=== PATIENT | male | born 1985 | race Caucasian/White ===

== ENCOUNTER → 2023-11-02 10:51 | Outpatient (REF) | payer OTHER, SELFPAY | LOC: HWRAD 10:51 | PROVIDERS: ATTENDING PHYSICIAN Internal Medicine | DX: N50.811 Right testicular pain (principal) | CPT/HCPCS: 76870; 93976 ==

== ENCOUNTER → 2025-08-30 14:20 | Outpatient (REF) | payer BC, SELFPAY | LOC: HWRAD 14:20 | PROVIDERS: ATTENDING PHYSICIAN Internal Medicine | DX: R51.9 Headache, unspecified (principal) | CPT/HCPCS: 70450 ==